=== PATIENT | female | born 1985 | race African-American/Black ===

== ENCOUNTER 2023-03-14 00:34 | Emergency (ER) | payer OTHER, MEDICAID ==
[~2023-03-14] VITALS: Ht 172.7 cm; Wt 120.0 kg
[2023-03-14 00:45] VITALS: BP 115/65; PULSE 100; TEMP 97.8; O2SAT 98
== END 2023-03-14 07:25 | disposition left against medical advice (07) ==
LOC: ER 00:34
DX: F41.9 Anxiety disorder, unspecified (principal); Z53.21 Procedure and treatment not carried out due to patient leaving prior to being seen by health care provider
CPT/HCPCS: 99281